=== PATIENT | male | born 1980 | race Hispanic/Latino ===

== ENCOUNTER 2023-02-19 11:11 | Emergency (ER) | payer OTHER ==
[~2023-02-19] VITALS: Ht 182.9 cm; Wt 81.1 kg
[2023-02-19] MEDS ORDERED: METFORMIN HCL500 M1 (11:41)
[2023-02-19] MEDS ORDERED: CHLORDIAZEPOXID25 MG PO (12:53)
[2023-02-19] MEDS ORDERED: ONDANSETRON ODT8 MG PO (12:53)
[2023-02-19 13:12] VITALS: BP 140/87
== END 2023-02-19 13:15 | disposition home or self-care (01) ==
LOC: ED 11:11
DX: F10.10 Alcohol abuse, uncomplicated (principal); E11.9 Type 2 diabetes mellitus without complications; Z79.84 Long term (current) use of oral hypoglycemic drugs
CPT/HCPCS: 36415; 80053; 83690; 85025; 96374; 96375; 99284 25; J2060; J2405; J7030